=== PATIENT | female | born 1935 | race Caucasian/White ===

== ENCOUNTER 2016-08-16 15:34 | Emergency (ER) | payer OTHER, BC ==
[~2016-08-16] VITALS: Ht 152.4 cm; Wt 51.3 kg
[2016-08-16 18:02] VITALS: BP 121/77
== END 2016-08-16 18:03 | disposition home or self-care (01) ==
LOC: ER 15:34
DX: S01.112A Laceration without foreign body of left eyelid and periocular area, initial encounter (principal); S61.412A Laceration without foreign body of left hand, initial encounter; I10 Essential (primary) hypertension; Z23 Encounter for immunization; W18.09XA Striking against other object with subsequent fall, initial encounter; Y93.01 Activity, walking, marching and hiking; Y92.89 Other specified places as the place of occurrence of the external cause; Y99.8 Other external cause status

== ENCOUNTER 2016-08-21 12:46 | Emergency (ER) | payer OTHER, BC ==
[~2016-08-21] VITALS: Ht 152.4 cm; Wt 51.3 kg
[2016-08-21 12:48] VITALS: BP 148/42
== END 2016-08-21 13:28 | disposition home or self-care (01) ==
LOC: ER 12:46
DX: S01.81XD Laceration without foreign body of other part of head, subsequent encounter (principal); I10 Essential (primary) hypertension; X58.XXXD Exposure to other specified factors, subsequent encounter; Y92.89 Other specified places as the place of occurrence of the external cause; Y99.8 Other external cause status